=== PATIENT | male | born 1950 | race Asian ===

== ENCOUNTER 2016-08-13 11:19 | Emergency (ER) | payer OTHER ==
[~2016-08-13] VITALS: Ht 167.6 cm; Wt 75.0 kg
[2016-08-13] MEDS ORDERED: PERTUSS(ACELL),DIPH,TET VAC/PF 0.5 ML VIAL IM ONE (12:30)
[2016-08-13] MEDS ORDERED: LIDOCAINE HCL BUFFERED 1% 20 ML VIAL INJ ONE (13:00)
[2016-08-13 15:44] VITALS: BP 129/73
[2016-08-13] MEDS ORDERED: BACITRACIN 0.9 GM PACKET OINTMENT TP ONE (16:15)
== END 2016-08-13 16:35 | disposition home or self-care (01) ==
LOC: EMS 11:21
DX: S61.411A Laceration without foreign body of right hand, initial encounter (principal); W25.XXXA Contact with sharp glass, initial encounter; Y93.89 Activity, other specified; Y92.89 Other specified places as the place of occurrence of the external cause; Y99.8 Other external cause status
CPT/HCPCS: 12001; 73130; 90471; 90715; 99284; J3490

== ENCOUNTER 2016-08-15 11:51 | Emergency (ER) | payer OTHER ==
[~2016-08-15] VITALS: Ht 165.1 cm; Wt 68.2 kg
[2016-08-15] MEDS ORDERED: IBUP-1681 PO (12:02)
[2016-08-15 12:30] VITALS: BP 95/78
== END 2016-08-15 13:30 | disposition home or self-care (01) ==
LOC: EMS 11:52
DX: Z48.00 Encounter for change or removal of nonsurgical wound dressing (principal)
CPT/HCPCS: 99281